=== PATIENT | male | born 1955 | race African-American/Black ===

== ENCOUNTER 2019-10-14 23:59 | Inpatient (IN) | payer MEDICARE, OTHER, MEDICAID ==
[~2019-10-14] VITALS: Ht 172.7 cm; Wt 54.4 kg
[2019-10-15 00:53] LABS: BG BASE EXCESS -1.2 mmol/L (-2.0-2.0); BG CARBOXYHEMOGLOBIN 0.9 % (0.5-1.5); BG DEOXYHEMOGLOBIN 0.8 % (0.0-5.0); BG FRACTION INSPIRED OXYGEN 100; BG HCO3 ACT 22.4 mmol/L (22.0-26.0); BG METHEMOGLOBIN 0.1 % (0.0-1.5); BG OXYGEN SATURATION 99.2 % (92.0-98.5); BG OXYHEMOGLOBIN 98.2 % (94.0-97.0); BG PCO2 34.6 mmHg (35.0-45.0); BG SAMPLE SITE RIGHT RADIAL; BG TOTAL HEMOGLOBIN 14.2 g/dL (12.0-18.0); BG VENT MODE MASK - NRB
[2019-10-15 01:11] LABS: BASOPHILS % 0.7 % (0.0-2.0); EOSINOPHILS % 0.7 % (0.0-5.0); HEMATOCRIT. 44.5 % (42.0-52.0); HEMOGLOBIN. 14.5 g/dL (14.0-18.0); LYMPHOCYTES % 17.2 % (20.0-50.0); MEAN CORPUSCULAR HEMOGLOBIN 27.5 pg (28.0-32.0); MEAN CORPUSCULAR VOLUME 84.4 fL (80.0-94.0); MEAN PLATELET VOLUME 7.7 fl (7.4-10.4); MONOCYTES % 8.8 % (2.0-8.0); NEUTROPHILS % 72.6 % (40.0-76.0); PLATELET 365 x1000/uL (130-400); RED BLOOD CELL COUNT 5.27 mill/uL (4.7-6.1); RED CELL DISTRIBUTION WIDTH 15.9 % (11.6-14.6)
[2019-10-15 01:34] LABS: CHLORIDE 106 mEq/L (98-107)
[2019-10-15] MEDS ORDERED: CEFTRIAXONE 1 G PREMIX 50 ML IV ONE (02:00)
[2019-10-15] MEDS ORDERED: AZITHROMYCIN 500 MG in DEXT 5% WATER 250 ML IV ONE (02:00)
[2019-10-15] MEDS ORDERED: HYDROCODONE/ACETAMINOPHEN 5/325MG TABLET PO ONE (03:45)
[2019-10-15] MEDS: LORAZEPAM 0.5MG TABLET PO PRN ×2 (06:57→20:42)
[2019-10-15] MEDS ORDERED: ACETAMINOPHEN 325MG TABLET PO PRN (12:30)
[2019-10-15] MEDS ORDERED: METHYLPREDNISOLONE SOD SUCC 125 MG/2 ML VIAL IV SCH (14:00)
[2019-10-15] MEDS ORDERED: ONDANSETRON HCL 4MG/2ML INJ IV PRN (14:00)
[2019-10-15] MEDS ORDERED: TRAZODONE HCL 50MG TABLET PO PRN (14:00)
[2019-10-15] MEDS: TRAMADOL 50MG TABLET PO PRN ×2 (14:42→20:42)
[2019-10-15 15:33] LABS: BASOPHILS % 0.5 % (0.0-2.0); EOSINOPHILS % 0.4 % (0.0-5.0); HEMATOCRIT. 38.6 % (42.0-52.0); HEMOGLOBIN. 12.7 g/dL (14.0-18.0); LYMPHOCYTES % 8.5 % (20.0-50.0); MEAN CORPUSCULAR HEMOGLOBIN 27.6 pg (28.0-32.0); MEAN CORPUSCULAR VOLUME 83.8 fL (80.0-94.0); MONOCYTES % 8.1 % (2.0-8.0); NEUTROPHILS % 82.5 % (40.0-76.0); PLATELET 357 x1000/uL (130-400); RED CELL DISTRIBUTION WIDTH 15.6 % (11.6-14.6)
[2019-10-15 15:38] LABS: CHLORIDE 106 mEq/L (98-107)
[2019-10-15] MEDS: CITALOPRAM HYDROBROMIDE 10MG TABLET PO SCH (16:40)
[2019-10-15] MEDS: METHYLPREDNISOLONE SOD SUCC 40 MG/ML VIAL IV SCH (17:52)
[2019-10-15 18:32] LABS: *AMPHETAMINES SCREEN URINE NEGATIVE (NEGATIVE); *BARBITURATES SCREEN URINE NEGATIVE (NEGATIVE); *BENZODIAZEPINES SCREEN URINE NEGATIVE (NEGATIVE); *COCAINE SCREEN URINE PRESUMTIVE POSITIVE (NEGATIVE); METHADONE URINE SCREEN NEGATIVE (NEGATIVE)
[2019-10-15 18:33] LABS: CANNABINOID URINE SCREEN NEGATIVE (NEGATIVE); OPIATES URINE SCREEN PRESUMTIVE POSITIVE (NEGATIVE); PHENCYCLIDINE URINE SCREEN NEGATIVE (NEGATIVE)
[2019-10-15 21:30] VITALS: BP 126/78
[2019-10-15] MEDS ORDERED: ALPR1TAB2 PO (21:38)
[2019-10-15] MEDS ORDERED: HYDR-3280 PO (21:38)
[2019-10-15] MEDS: HEPARIN 5000 UNITS/ML VIAL SUBCUT SCH (22:29)
[2019-10-15] MEDS ORDERED: ALPR-340 PO (23:40)
[2019-10-16] VITALS: BP 120/74
[2019-10-16] MEDS: METHYLPREDNISOLONE SOD SUCC 40 MG/ML VIAL IV SCH ×3 (00:54→20:52)
[2019-10-16] MEDS: CEFTRIAXONE 1,000 MG in DEXTROSE 5% WATER 50 ML IV SCH (01:02)
[2019-10-16] MEDS ORDERED: CEFTRIAXONE 1 G PREMIX 50 ML IV SCH (02:00)
[2019-10-16] MEDS ORDERED: AZITHROMYCIN 500 MG in DEXT 5% WATER 250 ML IV SCH (03:00)
[2019-10-16] MEDS: AZITHROMYCIN 500 MG in DEXT 5% WATER 250 ML IV SCH (03:26)
[2019-10-16 05:13] LABS: CHLORIDE 104 mEq/L (98-107)
[2019-10-16 05:39] LABS: HEMOGLOBIN. 12.7 g/dL (14.0-18.0); MEAN CORPUSCULAR VOLUME 83.9 fL (80.0-94.0); MEAN PLATELET VOLUME 7.6 fl (7.4-10.4); PLATELET 336 x1000/uL (130-400); RED BLOOD CELL COUNT 4.53 mill/uL (4.7-6.1); RED CELL DISTRIBUTION WIDTH 15.4 % (11.6-14.6)
[2019-10-16] MEDS: ALBUTEROL 6.7GM HFA INHALER ORI SCH ×2 (05:44)
[2019-10-16] MEDS: LORAZEPAM 0.5MG TABLET PO PRN (05:45)
[2019-10-16] MEDS: TRAMADOL 50MG TABLET PO PRN (05:50)
[2019-10-16 08:00] VITALS: BP 111/73
[2019-10-16] MEDS: HEPARIN 5000 UNITS/ML VIAL SUBCUT SCH (09:00)
[2019-10-16] MEDS: IPRATROPIUM/ALBUTEROL 0.5-3(2.5)MG/3ML NEB HHN SCH ×3 (09:31→23:59)
[2019-10-16] MEDS: CITALOPRAM HYDROBROMIDE 10MG TABLET PO SCH (09:37)
[2019-10-16 12:00] VITALS: BP 113/77
[2019-10-16 13:57] LABS: PLATELET ESTIMATE NORMAL
[2019-10-16] MEDS: GUAIFENESIN-DM 200MG-20MG/10ML UDC PO PRN ×2 (14:33→20:52)
[2019-10-16] MEDS: CYCLOBENZAPRINE 10MG TABLET PO PRN (14:33)
[2019-10-16] MEDS: GABAPENTIN 100MG CAPSULE PO SCH ×2 (14:33→21:02)
[2019-10-16 16:00] VITALS: BP 117/79
[2019-10-16 20:00] VITALS: BP 133/46
[2019-10-16] MEDS: ENOXAPARIN 60MG/0.6ML SYR SUBCUT SCH (20:52)
[2019-10-16] MEDS ORDERED: IOHEXOL-350 100 ML BOTTLE ONE (21:58)
[2019-10-17] VITALS: BP 103/70
[2019-10-17] MEDS: AZITHROMYCIN 500 MG in DEXT 5% WATER 250 ML IV SCH (02:01)
[2019-10-17] MEDS: CEFTRIAXONE 1,000 MG in DEXTROSE 5% WATER 50 ML IV SCH (02:01)
[2019-10-17 04:00] VITALS: BP 99/62
[2019-10-17] MEDS: GABAPENTIN 100MG CAPSULE PO SCH ×3 (06:42→22:49)
[2019-10-17 07:24] LABS: HEMATOCRIT. 37.1 % (42.0-52.0); HEMOGLOBIN. 12.2 g/dL (14.0-18.0); MEAN CORPUSCULAR HEMOGLOBIN 27.4 pg (28.0-32.0); MEAN CORPUSCULAR VOLUME 83.3 fL (80.0-94.0); MEAN PLATELET VOLUME 7.6 fl (7.4-10.4); PLATELET 353 x1000/uL (130-400); RED BLOOD CELL COUNT 4.45 mill/uL (4.7-6.1); RED CELL DISTRIBUTION WIDTH 15.6 % (11.6-14.6)
[2019-10-17 07:41] LABS: PROTHROMBIN TIME 10.9 sec (9.6-11.0)
[2019-10-17 07:55] LABS: CHLORIDE 103 mEq/L (98-107)
[2019-10-17 08:00] VITALS: BP 100/59
[2019-10-17] MEDS: CITALOPRAM HYDROBROMIDE 10MG TABLET PO SCH (08:09)
[2019-10-17] MEDS: METHYLPREDNISOLONE SOD SUCC 40 MG/ML VIAL IV SCH ×2 (08:09→20:41)
[2019-10-17] MEDS: ENOXAPARIN 60MG/0.6ML SYR SUBCUT SCH (08:09)
[2019-10-17 12:00] VITALS: BP 144/87
[2019-10-17] MEDS: IPRATROPIUM/ALBUTEROL 0.5-3(2.5)MG/3ML NEB HHN SCH ×3 (12:58→20:26)
[2019-10-17] MEDS ORDERED: FUROSEMIDE 40MG/4ML VIAL IVP NR (14:00)
[2019-10-17 14:17] LABS: PLATELET ESTIMATE NORMAL
[2019-10-17] MEDS: CYCLOBENZAPRINE 10MG TABLET PO PRN (14:51)
[2019-10-17 16:00] VITALS: BP 118/76
[2019-10-17 20:00] VITALS: BP 124/82
[2019-10-17] MEDS: LORAZEPAM 0.5MG TABLET PO PRN (20:41)
[2019-10-18] VITALS: BP 128/85
[2019-10-18] MEDS: CEFTRIAXONE 1,000 MG in DEXTROSE 5% WATER 50 ML IV SCH (02:25)
[2019-10-18 04:00] VITALS: BP 105/62
[2019-10-18] MEDS: IPRATROPIUM/ALBUTEROL 0.5-3(2.5)MG/3ML NEB HHN SCH ×6 (04:00→20:00)
[2019-10-18] MEDS: AZITHROMYCIN 500 MG in DEXT 5% WATER 250 ML IV SCH (04:29)
[2019-10-18] MEDS: GABAPENTIN 100MG CAPSULE PO SCH ×3 (06:36→21:19)
[2019-10-18 06:46] LABS: HEMATOCRIT. 39.4 % (42.0-52.0); HEMOGLOBIN. 12.8 g/dL (14.0-18.0); MEAN CORPUSCULAR HEMOGLOBIN 27.1 pg (28.0-32.0); MEAN CORPUSCULAR VOLUME 83.2 fL (80.0-94.0); MEAN PLATELET VOLUME 7.8 fl (7.4-10.4); PLATELET 319 x1000/uL (130-400); RED BLOOD CELL COUNT 4.73 mill/uL (4.7-6.1); RED CELL DISTRIBUTION WIDTH 15.4 % (11.6-14.6)
[2019-10-18 07:03] LABS: CHLORIDE 102 mEq/L (98-107)
[2019-10-18 08:00] VITALS: BP 117/78
[2019-10-18] MEDS ORDERED: SODIUM BICARBONATE 4% (2.4MEQ) 5ML VIAL IV ONE (08:59)
[2019-10-18] MEDS: METHYLPREDNISOLONE SOD SUCC 40 MG/ML VIAL IV SCH ×2 (10:05→21:19)
[2019-10-18] MEDS: CITALOPRAM HYDROBROMIDE 10MG TABLET PO SCH (10:05)
[2019-10-18 12:00] VITALS: BP 124/85
[2019-10-18] MEDS ORDERED: SODIUM POLYSTYRENE SULFONATE 15 G/60 ML BOT PO NR (12:30)
[2019-10-18] MEDS: FUROSEMIDE 40MG/4ML VIAL IVP SCH (13:11)
[2019-10-18 16:00] VITALS: BP 119/81
[2019-10-18 17:06] LABS: PLATELET ESTIMATE NORMAL
[2019-10-18 20:18] VITALS: BP 116/77
[2019-10-18] MEDS: TRAMADOL 50MG TABLET PO PRN (21:22)
[2019-10-19] VITALS: BP 127/86
[2019-10-19] MEDS: CEFTRIAXONE 1,000 MG in DEXTROSE 5% WATER 50 ML IV SCH (01:32)
[2019-10-19] MEDS: AZITHROMYCIN 500 MG in DEXT 5% WATER 250 ML IV SCH (02:47)
[2019-10-19 04:00] VITALS: BP 124/83
[2019-10-19] MEDS: GABAPENTIN 100MG CAPSULE PO SCH ×3 (06:35→21:48)
[2019-10-19 07:40] LABS: CHLORIDE 100 mEq/L (98-107)
[2019-10-19 08:00] VITALS: BP 131/86
[2019-10-19 08:00] LABS: HEMATOCRIT. 40.1 % (42.0-52.0); HEMOGLOBIN. 13.4 g/dL (14.0-18.0); MEAN CORPUSCULAR HEMOGLOBIN 27.7 pg (28.0-32.0); MEAN CORPUSCULAR VOLUME 82.6 fL (80.0-94.0); MEAN PLATELET VOLUME 7.6 fl (7.4-10.4); PLATELET 350 x1000/uL (130-400); RED BLOOD CELL COUNT 4.86 mill/uL (4.7-6.1); RED CELL DISTRIBUTION WIDTH 15.5 % (11.6-14.6)
[2019-10-19] MEDS: IPRATROPIUM/ALBUTEROL 0.5-3(2.5)MG/3ML NEB HHN SCH ×4 (08:21→19:53)
[2019-10-19] MEDS: METHYLPREDNISOLONE SOD SUCC 40 MG/ML VIAL IV SCH ×2 (08:23→21:48)
[2019-10-19] MEDS: FUROSEMIDE 40MG/4ML VIAL IVP SCH (08:23)
[2019-10-19] MEDS: CITALOPRAM HYDROBROMIDE 10MG TABLET PO SCH (08:23)
[2019-10-19 12:00] VITALS: BP 114/75
[2019-10-19] MEDS: TRAMADOL 50MG TABLET PO PRN ×2 (13:01→21:58)
[2019-10-19 13:50] LABS: PLATELET ESTIMATE NORMAL
[2019-10-19 16:00] VITALS: BP 119/74
[2019-10-19 20:00] VITALS: BP 113/79
[2019-10-20] VITALS: BP 130/86
[2019-10-20] MEDS: IPRATROPIUM/ALBUTEROL 0.5-3(2.5)MG/3ML NEB HHN SCH ×5 (00:28→15:07)
[2019-10-20] MEDS: CEFTRIAXONE 1,000 MG in DEXTROSE 5% WATER 50 ML IV SCH (02:01)
[2019-10-20] MEDS: AZITHROMYCIN 500 MG in DEXT 5% WATER 250 ML IV SCH (02:01)
[2019-10-20] MEDS: GUAIFENESIN-DM 200MG-20MG/10ML UDC PO PRN (02:04)
[2019-10-20 04:00] VITALS: BP 129/85
[2019-10-20] MEDS: GABAPENTIN 100MG CAPSULE PO SCH ×2 (06:17→13:59)
[2019-10-20 07:18] LABS: HEMATOCRIT. 39.9 % (42.0-52.0); HEMOGLOBIN. 13.2 g/dL (14.0-18.0); MEAN CORPUSCULAR HEMOGLOBIN 27.4 pg (28.0-32.0); MEAN CORPUSCULAR VOLUME 82.5 fL (80.0-94.0); PLATELET 337 x1000/uL (130-400); RED BLOOD CELL COUNT 4.83 mill/uL (4.7-6.1); RED CELL DISTRIBUTION WIDTH 15.3 % (11.6-14.6)
[2019-10-20 07:29] LABS: CHLORIDE 98 mEq/L (98-107)
[2019-10-20 08:00] VITALS: BP_SYST 133; BP_SYST 150; BP_DIAS 63; BP_DIAS 75
[2019-10-20] MEDS: FUROSEMIDE 40MG/4ML VIAL IVP SCH (08:44)
[2019-10-20] MEDS: CITALOPRAM HYDROBROMIDE 10MG TABLET PO SCH (08:45)
[2019-10-20] MEDS: METHYLPREDNISOLONE SOD SUCC 40 MG/ML VIAL IV SCH (08:45)
[2019-10-20 11:27] LABS: PLATELET ESTIMATE NORMAL
[2019-10-20] MEDS: TRAMADOL 50MG TABLET PO PRN (11:38)
[2019-10-20 12:00] VITALS: BP 132/86
[2019-10-20] MEDS ORDERED: TOPUD PO (14:53)
[2019-10-20] MEDS ORDERED: IPRA3AMP9 HHN (14:53)
[2019-10-20] MEDS ORDERED: AZIT500T8 MT (14:53)
[2019-10-20] MEDS ORDERED: CITA10TA16 PO (14:53)
[2019-10-20] MEDS ORDERED: TRAM50TA3 MT (14:53)
[2019-10-20] MEDS ORDERED: FURO-151 MT (14:53)
[2019-10-20] MEDS ORDERED: FLUT1BLS INH (14:53)
[2019-10-20] MEDS ORDERED: P50 MT (14:53)
[2019-10-20] MEDS ORDERED: TIOT18CA3 INH (14:53)
[2019-10-20] MEDS ORDERED: CYCL10TA7 PO (14:53)
[2019-10-20] MEDS ORDERED: TRAZ-251 PO (14:53)
[2019-10-20] MEDS ORDERED: APIX5TAB MT (14:53)
[2019-10-20] MEDS ORDERED: TUSSL PO (14:53)
[2019-10-20] MEDS ORDERED: GABA-529 PO (14:53)
[2019-10-20] MEDS ORDERED: APIXABAN 5 MG TABLET PO SCH (15:00)
[2019-10-20 16:00] VITALS: BP 115/81
[2019-10-20 18:26] VITALS: BP 115/81
[2019-10-21] MEDS ORDERED: METHYLPREDNISOLONE SOD SUCC 40 MG/ML VIAL IV SCH (09:00)
== END 2019-10-20 18:47 | disposition home health service (06) | DRG 871 ==
LOC: ER 23:59 → 7WST 10-15 02:35 → ENRESERV 10-15 20:26 → 5WST 10-16 11:44
PROVIDERS: ADMIT Internal Medicine; ATTEND Internal Medicine
PROC: 0W993ZZ Drainage of Right Pleural Cavity, Percutaneous Approach (ICD-10-PCS; principal; 2019-10-18)
DX: A41.9 Sepsis, unspecified organism (principal); J18.9 Pneumonia, unspecified organism; J96.21 Acute and chronic respiratory failure with hypoxia; E87.1 Hypo-osmolality and hyponatremia; E44.0 Moderate protein-calorie malnutrition; I31.3 Pericardial effusion (noninflammatory); J90 Pleural effusion, not elsewhere classified; Z68.1 Body mass index [BMI] 19.9 or less, adult; C61 Malignant neoplasm of prostate; D64.9 Anemia, unspecified; E11.65 Type 2 diabetes mellitus with hyperglycemia; E87.5 Hyperkalemia; F14.10 Cocaine abuse, uncomplicated; F17.210 Nicotine dependence, cigarettes, uncomplicated; F41.9 Anxiety disorder, unspecified; I10 Essential (primary) hypertension; J43.9 Emphysema, unspecified; M54.9 Dorsalgia, unspecified; J45.909 Unspecified asthma, uncomplicated; Z79.01 Long term (current) use of anticoagulants; Z79.51 Long term (current) use of inhaled steroids; Z79.899 Other long term (current) drug therapy; Z85.46 Personal history of malignant neoplasm of prostate; Z86.711 Personal history of pulmonary embolism; Z99.81 Dependence on supplemental oxygen; Z11.59 Encounter for screening for other viral diseases
CPT/HCPCS: 32555; 36415; 36600; 71045; 71275; 76604; 78582; 80053; 80305; 82040; 82375; 82805; 83036; 83605; 83615; 83735; 83880; 84484; 85025; 88108; 93005; 93306; 94640; 96365; 96366; 96367; 96375; 96376; 97162; 97165; 99291; A9558; J0456; J0696; J1644; J1650; J1940; J2920; J2930; J3490; J7060; Q9967; U0003-CS

== ENCOUNTER 2019-10-26 00:34 | Inpatient (IN) | payer MEDICARE, MEDICAID ==
[~2019-10-26] VITALS: Ht 170.2 cm; Wt 53.1 kg
[~2019-10-26 00:34] MED LIST: APIX5TAB MT; AZIT500T8 MT; CITA10TA16 PO; CYCL10TA7 PO; FLUT1BLS INH; FURO-151 MT; GABA-529 PO; IPRA3AMP9 HHN; P50 MT; TIOT18CA3 INH; TOPUD PO; TRAM50TA3 MT; TRAZ-251 PO; TUSSL PO
[2019-10-26] MEDS ORDERED: IPRATROPIUM BROMIDE (0.02%) 0.5MG/2.5ML NEB HHN STA (01:04)
[2019-10-26] MEDS ORDERED: ALBUTEROL (0.083%) 2.5MG/3ML NEB HHN STA (01:04)
[2019-10-26 01:23] LABS: HEMATOCRIT. 40.1 % (42.0-52.0); HEMOGLOBIN. 13.2 g/dL (14.0-18.0); MEAN CORPUSCULAR HEMOGLOBIN 27.6 pg (28.0-32.0); MEAN CORPUSCULAR VOLUME 83.9 fL (80.0-94.0); MEAN PLATELET VOLUME 7.4 fl (7.4-10.4); PLATELET 291 x1000/uL (130-400); RED BLOOD CELL COUNT 4.78 mill/uL (4.7-6.1)
[2019-10-26 01:30] LABS: CHLORIDE 102 mEq/L (98-107)
[2019-10-26 01:53] LABS: PROTHROMBIN TIME 10.5 sec (9.6-11.0)
[2019-10-26] MEDS ORDERED: PIPERACILLIN/TAZ 3.375G PREMIX 50 ML IV ONE (02:15)
[2019-10-26 04:42] LABS: CLARITY URINE CLEAR (CLEAR); COLOR URINE YELLOW (YELLOW); KETONES URINE NEGATIVE (NEGATIVE); LEUKOCYTE ESTERASE URINE 1+ (NEGATIVE); NITRITE URINE NEGATIVE (NEGATIVE); OCCULT BLOOD URINE NEGATIVE (NEGATIVE); PH URINE 5.5 (4.5-8.0); PROTEIN URINE 1+ (NEGATIVE); SPECIFIC GRAVITY URINE 1.029 (1.005-1.030)
[2019-10-26 05:46] LABS: PLATELET ESTIMATE NORMAL
[2019-10-26] MEDS ORDERED: DIPHENHYDRAMINE 50MG/ML VIAL IV PRN (08:00)
[2019-10-26] MEDS ORDERED: ONDANSETRON HCL 4MG/2ML INJ IV PRN (08:00)
[2019-10-26] MEDS ORDERED: DOCUSATE SODIUM 100MG CAPSULE PO PRN (08:00)
[2019-10-26] MEDS ORDERED: CLONIDINE 0.1MG TABLET PO PRN (08:00)
[2019-10-26] MEDS ORDERED: PIPERACILLIN/TAZ 3.375G PREMIX 50 ML IV SCH (08:00)
[2019-10-26] MEDS ORDERED: MORPHINE SULFATE 2 MG/ML CPJ (NOT FOR IM USE) IV PRN (08:00)
[2019-10-26] MEDS ORDERED: ACETAMINOPHEN 325MG TABLET PO PRN (08:00)
[2019-10-26] MEDS ORDERED: HYDRALAZINE 20MG/ML VIAL IV PRN (08:00)
[2019-10-26] MEDS ORDERED: MAGNESIUM/ALUMINUM HYDROXIDE/SIMETHICONE 30ML UDC PO PRN (08:00)
[2019-10-26 09:40] LABS: *AMPHETAMINES SCREEN URINE NEGATIVE (NEGATIVE); *BARBITURATES SCREEN URINE NEGATIVE (NEGATIVE); *BENZODIAZEPINES SCREEN URINE PRESUMTIVE POSITIVE (NEGATIVE); *COCAINE SCREEN URINE PRESUMTIVE POSITIVE (NEGATIVE); METHADONE URINE SCREEN NEGATIVE (NEGATIVE); OPIATES URINE SCREEN PRESUMTIVE POSITIVE (NEGATIVE)
[2019-10-26 09:41] LABS: PHENCYCLIDINE URINE SCREEN NEGATIVE (NEGATIVE)
[2019-10-26 09:48] LABS: CANNABINOID URINE SCREEN NEGATIVE (NEGATIVE)
[2019-10-26] MEDS ORDERED: ENOXAPARIN 60MG/0.6ML SYR SUBCUT SCH (12:00)
[2019-10-26 12:15] VITALS: BP 129/75
[2019-10-26] MEDS: SODIUM CHLORIDE 0.9% INJ 3ML FLUSH IVF SCH ×2 (13:40→22:00)
[2019-10-26 14:07] VITALS: BP 114/83
[2019-10-26] MEDS: HYDROCODONE/ACETAMINOPHEN 10/325MG TABLET PO PRN ×2 (14:29→20:29)
[2019-10-26 15:06] LABS: CREATINE KINASE 79 IU/L (39-308)
[2019-10-26 15:08] LABS: CREATINE KINASE MB FRACTION 2.4 ng/mL (0.5-3.6)
[2019-10-26] MEDS: LORAZEPAM 2MG/ML CPJ IV PRN (15:13)
[2019-10-26] MEDS: GUAIFENESIN 200MG/10ML SUGAR FREE UDC PO PRN ×2 (15:13→20:28)
[2019-10-26 16:00] VITALS: BP 141/81
[2019-10-26] MEDS: PIPERACILLIN/TAZOBACTAM 3.375 G in DEXT 5% WATER 100 ML IV SCH (17:19)
[2019-10-26] MEDS ORDERED: IOHEXOL-350 100 ML BOTTLE ONE (17:31)
[2019-10-26 20:00] VITALS: BP 116/82
[2019-10-26] MEDS: ENOXAPARIN 60MG/0.6ML SYR SUBCUT SCH (20:28)
[2019-10-27] VITALS: BP 132/86
[2019-10-27 00:35] LABS: CREATINE KINASE 98 IU/L (39-308)
[2019-10-27 00:36] LABS: CREATINE KINASE MB FRACTION 2.1 ng/mL (0.5-3.6)
[2019-10-27] MEDS: HYDROCODONE/ACETAMINOPHEN 10/325MG TABLET PO PRN ×3 (00:52→20:20)
[2019-10-27] MEDS: GUAIFENESIN 200MG/10ML SUGAR FREE UDC PO PRN ×3 (00:52→20:19)
[2019-10-27] MEDS: PIPERACILLIN/TAZOBACTAM 3.375 G in DEXT 5% WATER 100 ML IV SCH ×3 (01:01→17:06)
[2019-10-27] MEDS: IPRATROPIUM/ALBUTEROL 0.5-3(2.5)MG/3ML NEB HHN PRN ×5 (01:55→20:08)
[2019-10-27 04:00] VITALS: BP 112/75
[2019-10-27] MEDS: SODIUM CHLORIDE 0.9% INJ 3ML FLUSH IVF SCH ×3 (05:18→22:00)
[2019-10-27 06:54] LABS: BASOPHILS % 0.5 % (0.0-2.0); EOSINOPHILS % 0.5 % (0.0-5.0); HEMATOCRIT. 36.9 % (42.0-52.0); HEMOGLOBIN. 12.2 g/dL (14.0-18.0); LYMPHOCYTES % 12.1 % (20.0-50.0); MEAN CORPUSCULAR HEMOGLOBIN 27.7 pg (28.0-32.0); MEAN CORPUSCULAR VOLUME 83.4 fL (80.0-94.0); MEAN PLATELET VOLUME 7.9 fl (7.4-10.4); MONOCYTES % 10.3 % (2.0-8.0); NEUTROPHILS % 76.6 % (40.0-76.0); PLATELET 261 x1000/uL (130-400); RED BLOOD CELL COUNT 4.42 mill/uL (4.7-6.1); RED CELL DISTRIBUTION WIDTH 15.9 % (11.6-14.6)
[2019-10-27 07:20] LABS: CHLORIDE 102 mEq/L (98-107)
[2019-10-27 08:00] VITALS: BP 114/79
[2019-10-27] MEDS: ENOXAPARIN 60MG/0.6ML SYR SUBCUT SCH ×2 (09:01→20:20)
[2019-10-27] MEDS: LORAZEPAM 2MG/ML CPJ IV PRN ×2 (10:58→22:46)
[2019-10-27 12:00] VITALS: BP 112/81
[2019-10-27 16:00] VITALS: BP 105/71
[2019-10-27 20:00] VITALS: BP 114/79
[2019-10-28] VITALS: BP 115/70
[2019-10-28] MEDS: IPRATROPIUM/ALBUTEROL 0.5-3(2.5)MG/3ML NEB HHN PRN ×3 (00:41→16:00)
[2019-10-28] MEDS: PIPERACILLIN/TAZOBACTAM 3.375 G in DEXT 5% WATER 100 ML IV SCH ×4 (02:00→17:27)
[2019-10-28] MEDS: GUAIFENESIN 200MG/10ML SUGAR FREE UDC PO PRN ×3 (02:14→21:40)
[2019-10-28] MEDS: HYDROCODONE/ACETAMINOPHEN 10/325MG TABLET PO PRN ×3 (02:16→21:40)
[2019-10-28 04:00] VITALS: BP 141/72
[2019-10-28] MEDS: SODIUM CHLORIDE 0.9% INJ 3ML FLUSH IVF SCH ×3 (05:10→20:49)
[2019-10-28 08:00] VITALS: BP 107/79
[2019-10-28] MEDS: ENOXAPARIN 60MG/0.6ML SYR SUBCUT SCH (09:27)
[2019-10-28 12:00] VITALS: BP 119/72
[2019-10-28 16:00] VITALS: BP 139/84
[2019-10-28] MEDS: LORAZEPAM 2MG/ML CPJ IV PRN (16:21)
[2019-10-28 20:00] VITALS: BP 146/90
[2019-10-28] MEDS: IPRATROPIUM/ALBUTEROL 0.5-3(2.5)MG/3ML NEB HHN SCH (20:42)
[2019-10-29 00:01] VITALS: BP 119/72
[2019-10-29] MEDS: IPRATROPIUM/ALBUTEROL 0.5-3(2.5)MG/3ML NEB HHN SCH ×4 (01:09→21:54)
[2019-10-29] MEDS: PIPERACILLIN/TAZOBACTAM 3.375 G in DEXT 5% WATER 100 ML IV SCH ×3 (01:29→17:12)
[2019-10-29] MEDS: GUAIFENESIN 200MG/10ML SUGAR FREE UDC PO PRN ×4 (03:08→22:27)
[2019-10-29] MEDS: HYDROCODONE/ACETAMINOPHEN 10/325MG TABLET PO PRN ×2 (03:09→18:45)
[2019-10-29 04:00] VITALS: BP 105/67
[2019-10-29] MEDS: SODIUM CHLORIDE 0.9% INJ 3ML FLUSH IVF SCH ×3 (06:22→21:14)
[2019-10-29 06:26] LABS: CHLORIDE 99 mEq/L (98-107)
[2019-10-29 06:54] LABS: BASOPHILS % 0.3 % (0.0-2.0); EOSINOPHILS % 0.1 % (0.0-5.0); HEMATOCRIT. 35.7 % (42.0-52.0); HEMOGLOBIN. 11.8 g/dL (14.0-18.0); LYMPHOCYTES % 8.6 % (20.0-50.0); MEAN CORPUSCULAR HEMOGLOBIN 27.8 pg (28.0-32.0); MEAN CORPUSCULAR VOLUME 84.1 fL (80.0-94.0); MEAN PLATELET VOLUME 7.8 fl (7.4-10.4); MONOCYTES % 8.5 % (2.0-8.0); NEUTROPHILS % 82.5 % (40.0-76.0); PLATELET 260 x1000/uL (130-400); RED BLOOD CELL COUNT 4.24 mill/uL (4.7-6.1); RED CELL DISTRIBUTION WIDTH 16.1 % (11.6-14.6)
[2019-10-29] MEDS ORDERED: SODIUM BICARBONATE 4% (2.4MEQ) 5ML VIAL IV ONE (07:48)
[2019-10-29 08:00] VITALS: BP 124/92
[2019-10-29] MEDS ORDERED: ENOXAPARIN 40MG/0.4ML SYR SUBCUT SCH (09:00)
[2019-10-29 12:00] VITALS: BP 119/69
[2019-10-29] MEDS ORDERED: ALBUMIN HUMAN 12.5GM/50ML (25%) IV NR (14:00)
[2019-10-29 16:00] VITALS: BP 113/75
[2019-10-29 20:00] VITALS: BP 110/61
[2019-10-30] VITALS: BP 97/64
[2019-10-30] MEDS: IPRATROPIUM/ALBUTEROL 0.5-3(2.5)MG/3ML NEB HHN SCH ×4 (02:12→21:13)
[2019-10-30] MEDS: PIPERACILLIN/TAZOBACTAM 3.375 G in DEXT 5% WATER 100 ML IV SCH ×3 (02:54→17:53)
[2019-10-30] MEDS: HYDROCODONE/ACETAMINOPHEN 10/325MG TABLET PO PRN ×4 (03:17→22:13)
[2019-10-30 04:00] VITALS: BP 95/53
[2019-10-30] MEDS: SODIUM CHLORIDE 0.9% INJ 3ML FLUSH IVF SCH ×3 (05:45→21:01)
[2019-10-30 06:34] LABS: CHLORIDE 102 mEq/L (98-107)
[2019-10-30 07:00] LABS: HEMATOCRIT. 32.1 % (42.0-52.0); HEMOGLOBIN. 10.6 g/dL (14.0-18.0); MEAN CORPUSCULAR HEMOGLOBIN 27.6 pg (28.0-32.0); MEAN CORPUSCULAR VOLUME 83.2 fL (80.0-94.0); MEAN PLATELET VOLUME 7.5 fl (7.4-10.4); PLATELET 226 x1000/uL (130-400); RED BLOOD CELL COUNT 3.85 mill/uL (4.7-6.1); RED CELL DISTRIBUTION WIDTH 15.3 % (11.6-14.6)
[2019-10-30 08:00] VITALS: BP 101/62
[2019-10-30] MEDS: ENOXAPARIN 40MG/0.4ML SYR SUBCUT SCH (08:29)
[2019-10-30] MEDS: GUAIFENESIN 200MG/10ML SUGAR FREE UDC PO PRN ×2 (08:29→21:02)
[2019-10-30 12:00] VITALS: BP 105/72
[2019-10-30] MEDS: BENZONATATE 100MG CAPSULE PO SCH ×2 (13:45→21:01)
[2019-10-30 16:00] VITALS: BP 140/62
[2019-10-30 20:00] VITALS: BP 95/57
[2019-10-30] MEDS: GUAIFENESIN 600MG ER TABLET PO SCH (21:01)
[2019-10-31] VITALS: BP 113/74
[2019-10-31] MEDS: PIPERACILLIN/TAZOBACTAM 3.375 G in DEXT 5% WATER 100 ML IV SCH ×3 (01:36→18:00)
[2019-10-31] MEDS: IPRATROPIUM/ALBUTEROL 0.5-3(2.5)MG/3ML NEB HHN SCH ×3 (02:18→12:53)
[2019-10-31 04:00] VITALS: BP 100/59
[2019-10-31] MEDS: SODIUM CHLORIDE 0.9% INJ 3ML FLUSH IVF SCH ×2 (06:31→14:00)
[2019-10-31] MEDS: BENZONATATE 100MG CAPSULE PO SCH ×2 (06:31→15:27)
[2019-10-31 08:00] VITALS: BP 123/73
[2019-10-31] MEDS: GUAIFENESIN 600MG ER TABLET PO SCH (08:45)
[2019-10-31] MEDS: ENOXAPARIN 40MG/0.4ML SYR SUBCUT SCH (08:46)
[2019-10-31 12:00] VITALS: BP 93/56
[2019-10-31 12:00] LABS: PLATELET ESTIMATE NORMAL
[2019-10-31 15:44] VITALS: BP 101/67
[2019-10-31 20:00] VITALS: BP 108/69
== END 2019-10-31 22:25 | disposition home or self-care (01) | DRG 871 ==
LOC: ER 00:34 → 8WST 02:30 → EDBEDREQTM 02:35 → EDBEDREQ 02:35 → ENRESERV 11:11
PROVIDERS: ADMIT Internal Medicine; ATTEND Internal Medicine
PROC: 0W993ZZ Drainage of Right Pleural Cavity, Percutaneous Approach (ICD-10-PCS; principal; 2019-10-29)
DX: A41.9 Sepsis, unspecified organism (principal); J18.9 Pneumonia, unspecified organism; J96.01 Acute respiratory failure with hypoxia; C34.91 Malignant neoplasm of unspecified part of right bronchus or lung; E46 Unspecified protein-calorie malnutrition; J91.0 Malignant pleural effusion; E87.2 Acidosis; D68.59 Other primary thrombophilia; J44.0 Chronic obstructive pulmonary disease with (acute) lower respiratory infection; C79.51 Secondary malignant neoplasm of bone; M48.54XA Collapsed vertebra, not elsewhere classified, thoracic region, initial encounter for fracture; J44.1 Chronic obstructive pulmonary disease with (acute) exacerbation; Z68.1 Body mass index [BMI] 19.9 or less, adult; I10 Essential (primary) hypertension; F14.10 Cocaine abuse, uncomplicated; E11.9 Type 2 diabetes mellitus without complications; F17.210 Nicotine dependence, cigarettes, uncomplicated; I25.10 Atherosclerotic heart disease of native coronary artery without angina pectoris; Z79.01 Long term (current) use of anticoagulants; Z86.711 Personal history of pulmonary embolism; Z92.3 Personal history of irradiation; Z99.81 Dependence on supplemental oxygen; Z79.2 Long term (current) use of antibiotics; Z79.899 Other long term (current) drug therapy; Z71.51 Drug abuse counseling and surveillance of drug abuser; Z85.46 Personal history of malignant neoplasm of prostate
CPT/HCPCS: 32555; 36415; 71045; 71275; 80048; 80053; 80305; 81003; 82550; 82553; 83605; 83880; 84484; 85025; 93005; 93970; 94640; 99291; J1650; J2060; J2270; J2543; J3490; J7060; P9047; Q9967

== ENCOUNTER 2019-11-11 09:30 | Inpatient (IN) | payer MEDICARE, MEDICAID ==
[~2019-11-11] VITALS: Ht 170.2 cm; Wt 65.8 kg
[2019-11-11] MEDS ORDERED: IPRATROPIUM BROMIDE (0.02%) 0.5MG/2.5ML NEB HHN STA (09:55)
[2019-11-11] MEDS ORDERED: ALBUTEROL (0.083%) 2.5MG/3ML NEB HHN STA (09:55)
[2019-11-11] MEDS ORDERED: METHYLPREDNISOLONE SOD SUCC 125 MG/2 ML VIAL IV STA (09:55)
[2019-11-11 10:12] LABS: HEMATOCRIT. 34.8 % (42.0-52.0); HEMOGLOBIN. 11.5 g/dL (14.0-18.0); MEAN CORPUSCULAR VOLUME 85.1 fL (80.0-94.0); PLATELET 382 x1000/uL (130-400); RED BLOOD CELL COUNT 4.09 mill/uL (4.7-6.1); RED CELL DISTRIBUTION WIDTH 16.6 % (11.6-14.6)
[2019-11-11 10:18] LABS: CHLORIDE 102 mEq/L (98-107)
[2019-11-11 10:37] LABS: PLATELET ESTIMATE NORMAL
[2019-11-11] MEDS ORDERED: MAGNESIUM/ALUMINUM HYDROXIDE/SIMETHICONE 30ML UDC PO PRN (14:00)
[2019-11-11] MEDS ORDERED: GUAIFENESIN 200MG/10ML SUGAR FREE UDC PO PRN (14:00)
[2019-11-11] MEDS ORDERED: DOCUSATE SODIUM 100MG CAPSULE PO PRN (14:00)
[2019-11-11] MEDS ORDERED: ACETAMINOPHEN 325MG TABLET PO PRN (14:00)
[2019-11-11] MEDS ORDERED: MORPHINE SULFATE 2 MG/ML CPJ (NOT FOR IM USE) IV PRN (14:00)
[2019-11-11] MEDS ORDERED: IPRATROPIUM/ALBUTEROL 0.5-3(2.5)MG/3ML NEB HHN PRN (14:00)
[2019-11-11] MEDS ORDERED: CLONIDINE 0.1MG TABLET PO PRN (14:00)
[2019-11-11] MEDS: METHYLPREDNISOLONE SOD SUCC 125 MG/2 ML VIAL IV SCH ×2 (16:00→20:30)
[2019-11-11] MEDS: ENOXAPARIN 40MG/0.4ML SYR SUBCUT SCH (16:00)
[2019-11-11] MEDS ORDERED: DILTIAZEM HCL 5MG/ML 5ML VIAL IV ONE (17:00)
[2019-11-11 18:55] VITALS: BP 138/86
[2019-11-11 20:00] VITALS: BP 110/65
[2019-11-11] MEDS: HYDROCODONE/ACETAMINOPHEN 5/325MG TABLET PO PRN (20:40)
[2019-11-11] MEDS: LORAZEPAM 2MG/ML CPJ IV PRN (21:15)
[2019-11-12] VITALS: BP 133/79
[2019-11-12] MEDS: DILTIAZEM HCL 30MG TABLET PO SCH ×4 (00:15→13:58)
[2019-11-12] MEDS: METHYLPREDNISOLONE SOD SUCC 125 MG/2 ML VIAL IV SCH ×4 (03:16→20:00)
[2019-11-12 04:00] VITALS: BP 128/70
[2019-11-12] MEDS: HYDROCODONE/ACETAMINOPHEN 5/325MG TABLET PO PRN ×3 (05:16→17:29)
[2019-11-12 06:17] LABS: HEMATOCRIT. 31.4 % (42.0-52.0); HEMOGLOBIN. 10.4 g/dL (14.0-18.0); MEAN CORPUSCULAR HEMOGLOBIN 27.8 pg (28.0-32.0); MEAN CORPUSCULAR VOLUME 83.8 fL (80.0-94.0); MEAN PLATELET VOLUME 7.3 fl (7.4-10.4); PLATELET 369 x1000/uL (130-400); RED BLOOD CELL COUNT 3.74 mill/uL (4.7-6.1); RED CELL DISTRIBUTION WIDTH 16.3 % (11.6-14.6)
[2019-11-12 06:29] LABS: PROTHROMBIN TIME 10.9 sec (9.6-11.0)
[2019-11-12 06:40] LABS: CHLORIDE 103 mEq/L (98-107)
[2019-11-12 08:00] VITALS: BP 128/79
[2019-11-12] MEDS: ENOXAPARIN 40MG/0.4ML SYR SUBCUT SCH (08:34)
[2019-11-12] MEDS: LISINOPRIL 10MG TABLET PO SCH (08:35)
[2019-11-12 12:00] VITALS: BP 110/76
[2019-11-12 16:00] VITALS: BP 110/75
[2019-11-12 18:17] LABS: PLATELET ESTIMATE NORMAL
[2019-11-12 20:00] VITALS: BP 120/69
[2019-11-12] MEDS: LORAZEPAM 2MG/ML CPJ IV PRN (20:00)
[2019-11-12 23:24] LABS: CLARITY URINE CLEAR (CLEAR); COLOR URINE YELLOW (YELLOW); KETONES URINE NEGATIVE (NEGATIVE); LEUKOCYTE ESTERASE URINE NEGATIVE (NEGATIVE); NITRITE URINE NEGATIVE (NEGATIVE); OCCULT BLOOD URINE NEGATIVE (NEGATIVE); PROTEIN URINE NEGATIVE (NEGATIVE); SPECIFIC GRAVITY URINE 1.029 (1.005-1.030); UROBILINOGEN URINE 0.2 E.U./dL (0.2-1.0)
[2019-11-12 23:40] LABS: PHENCYCLIDINE URINE SCREEN NEGATIVE (NEGATIVE)
[2019-11-12 23:41] LABS: *AMPHETAMINES SCREEN URINE NEGATIVE (NEGATIVE); *BARBITURATES SCREEN URINE NEGATIVE (NEGATIVE); *BENZODIAZEPINES SCREEN URINE NEGATIVE (NEGATIVE); *COCAINE SCREEN URINE PRESUMTIVE POSITIVE (NEGATIVE); CANNABINOID URINE SCREEN NEGATIVE (NEGATIVE); METHADONE URINE SCREEN NEGATIVE (NEGATIVE); OPIATES URINE SCREEN PRESUMTIVE POSITIVE (NEGATIVE)
[2019-11-12] MEDS: IPRATROPIUM BROMIDE (0.02%) 0.5MG/2.5ML NEB HHN SCH (23:54)
[2019-11-13] VITALS: BP 141/83
[2019-11-13] MEDS: DILTIAZEM HCL 30MG TABLET PO SCH ×2 (00:07→05:28)
[2019-11-13] MEDS: METHYLPREDNISOLONE SOD SUCC 125 MG/2 ML VIAL IV SCH ×4 (01:48→21:38)
[2019-11-13 03:47] VITALS: BP 120/79
[2019-11-13 08:00] VITALS: BP 131/84
[2019-11-13] MEDS: LISINOPRIL 10MG TABLET PO SCH (09:00)
[2019-11-13] MEDS ORDERED: SODIUM BICARBONATE 4% (2.4MEQ) 5ML VIAL IV ONE (10:13)
[2019-11-13] MEDS: IPRATROPIUM BROMIDE (0.02%) 0.5MG/2.5ML NEB HHN SCH ×2 (10:17→13:34)
[2019-11-13 12:00] VITALS: BP 152/102
[2019-11-13] MEDS: HYDROCODONE/ACETAMINOPHEN 5/325MG TABLET PO PRN (14:36)
[2019-11-13] MEDS: DILTIAZEM HCL 60MG TABLET PO SCH ×2 (14:36→23:25)
[2019-11-13] MEDS: ENOXAPARIN 40MG/0.4ML SYR SUBCUT SCH (14:37)
[2019-11-13] MEDS: LORAZEPAM 2MG/ML CPJ IV PRN (15:12)
[2019-11-13 20:00] VITALS: BP 176/123
[2019-11-14] MEDS: METHYLPREDNISOLONE SOD SUCC 125 MG/2 ML VIAL IV SCH ×3 (02:00→14:00)
[2019-11-14 08:00] VITALS: BP 128/77
[2019-11-14] MEDS: DILTIAZEM HCL 60MG TABLET PO SCH (08:39)
[2019-11-14] MEDS: LISINOPRIL 10MG TABLET PO SCH (08:39)
[2019-11-14] MEDS ORDERED: DILTIAZEM HCL 30MG TABLET PO NR (09:00)
[2019-11-14] MEDS: IPRATROPIUM BROMIDE (0.02%) 0.5MG/2.5ML NEB HHN SCH (09:28)
[2019-11-14] MEDS ORDERED: APIXABAN 5 MG TABLET PO SCH (10:30)
[2019-11-14 11:11] VITALS: BP 133/81
[2019-11-14 12:00] VITALS: BP 133/81
[2019-11-14] MEDS ORDERED: DILTIAZEM HCL 90MG TABLET PO SCH (21:00)
== END 2019-11-14 15:45 | disposition home health service (06) | DRG 180 ==
LOC: ER 09:30 → 8WST 11:54 → ENRESERV 15:38
PROVIDERS: ADMIT Hospitalist; ATTEND Hospitalist
PROC: 0W993ZZ Drainage of Right Pleural Cavity, Percutaneous Approach (ICD-10-PCS; principal; 2019-11-13)
DX: C78.01 Secondary malignant neoplasm of right lung (principal); J96.20 Acute and chronic respiratory failure, unspecified whether with hypoxia or hypercapnia; I50.33 Acute on chronic diastolic (congestive) heart failure; J91.0 Malignant pleural effusion; J93.9 Pneumothorax, unspecified; I47.1 Supraventricular tachycardia; C79.51 Secondary malignant neoplasm of bone; D68.59 Other primary thrombophilia; J44.9 Chronic obstructive pulmonary disease, unspecified; C61 Malignant neoplasm of prostate; F17.210 Nicotine dependence, cigarettes, uncomplicated; F14.90 Cocaine use, unspecified, uncomplicated; R74.0 Nonspecific elevation of levels of transaminase and lactic acid dehydrogenase [LDH]; Z20.828 Contact with and (suspected) exposure to other viral communicable diseases; Z85.46 Personal history of malignant neoplasm of prostate; Z79.899 Other long term (current) drug therapy; Z86.711 Personal history of pulmonary embolism; Z92.3 Personal history of irradiation; Z99.81 Dependence on supplemental oxygen; I11.0 Hypertensive heart disease with heart failure
CPT/HCPCS: 32555; 36415; 71045; 80053; 80305; 81003; 84443; 84484; 85025; 88305; 88312; 93005; 93306; 94640; 94644; 99285; J1650; J2060; J2930; J3490

== ENCOUNTER 2019-11-25 17:16 | Inpatient (IN) | payer MEDICARE, MEDICAID ==
[~2019-11-25] VITALS: Ht 170.2 cm; Wt 54.9 kg
[2019-11-25] MEDS ORDERED: ONDANSETRON HCL 4MG/2ML INJ IV PRN (18:30)
[2019-11-25] MEDS ORDERED: ACETAMINOPHEN 325MG TABLET PO PRN (18:30)
[2019-11-25] MEDS ORDERED: HYDROCODONE/ACETAMINOPHEN 5/325MG TABLET PO PRN (18:30)
[2019-11-25] MEDS ORDERED: LORAZEPAM 2MG/ML CPJ IV PRN (18:30)
[2019-11-25] MEDS ORDERED: MORPHINE SULFATE 2 MG/ML CPJ (NOT FOR IM USE) IV PRN (18:30)
[2019-11-25 19:55] LABS: HEMATOCRIT. 35.5 % (42.0-52.0); HEMOGLOBIN. 11.6 g/dL (14.0-18.0); MEAN CORPUSCULAR HEMOGLOBIN 27.7 pg (28.0-32.0); MEAN CORPUSCULAR VOLUME 85.2 fL (80.0-94.0); MEAN PLATELET VOLUME 7.3 fl (7.4-10.4); PLATELET 204 x1000/uL (130-400); RED BLOOD CELL COUNT 4.17 mill/uL (4.7-6.1); RED CELL DISTRIBUTION WIDTH 16.6 % (11.6-14.6)
[2019-11-25 20:00] VITALS: BP 93/57
[2019-11-25 20:01] LABS: CHLORIDE 107 mEq/L (98-107)
[2019-11-25] MEDS: HYDROCODONE/ACETAMINOPHEN 5/325MG TABLET PO PRN (20:18)
[2019-11-25 20:39] LABS: PLATELET ESTIMATE NORMAL
[2019-11-25 20:49] VITALS: BP 93/51
[2019-11-25] MEDS: TRAZODONE HCL 50MG TABLET PO PRN (22:23)
[2019-11-25] MEDS: IPRATROPIUM/ALBUTEROL 0.5-3(2.5)MG/3ML NEB HHN PRN (22:32)
[2019-11-25 23:04] LABS: *AMPHETAMINES SCREEN URINE NEGATIVE (NEGATIVE); *BARBITURATES SCREEN URINE NEGATIVE (NEGATIVE); *BENZODIAZEPINES SCREEN URINE NEGATIVE (NEGATIVE)
[2019-11-25 23:05] LABS: CANNABINOID URINE SCREEN NEGATIVE (NEGATIVE); METHADONE URINE SCREEN NEGATIVE (NEGATIVE); OPIATES URINE SCREEN PRESUMTIVE POSITIVE (NEGATIVE); PHENCYCLIDINE URINE SCREEN NEGATIVE (NEGATIVE)
[2019-11-25 23:20] LABS: *COCAINE SCREEN URINE NEGATIVE (NEGATIVE)
[2019-11-25] MEDS: SODIUM CHLORIDE 0.9% 1,000 ML IV SCH (23:49)
[2019-11-26] VITALS: BP 108/74
[2019-11-26] MEDS: IPRATROPIUM/ALBUTEROL 0.5-3(2.5)MG/3ML NEB HHN SCH ×3 (01:26→21:55)
[2019-11-26] MEDS: HYDROCODONE/ACETAMINOPHEN 5/325MG TABLET PO PRN ×2 (03:23→20:33)
[2019-11-26 04:00] VITALS: BP 122/63
[2019-11-26 08:00] VITALS: BP 86/59
[2019-11-26 09:34] LABS: CHLORIDE 107 mEq/L (98-107)
[2019-11-26 09:36] LABS: BASOPHILS % 0.5 % (0.0-2.0); EOSINOPHILS % 0.1 % (0.0-5.0); HEMATOCRIT. 35.9 % (42.0-52.0); HEMOGLOBIN. 11.4 g/dL (14.0-18.0); MEAN CORPUSCULAR HEMOGLOBIN 27.3 pg (28.0-32.0); MEAN CORPUSCULAR VOLUME 85.9 fL (80.0-94.0); MEAN PLATELET VOLUME 8.7 fl (7.4-10.4); MONOCYTES % 5.9 % (2.0-8.0); NEUTROPHILS % 83.5 % (40.0-76.0); PLATELET 187 x1000/uL (130-400); RED BLOOD CELL COUNT 4.19 mill/uL (4.7-6.1)
[2019-11-26] MEDS: IPRATROPIUM/ALBUTEROL 0.5-3(2.5)MG/3ML NEB HHN PRN (10:20)
[2019-11-26 12:00] VITALS: BP 91/67
[2019-11-26] MEDS: SODIUM CHLORIDE 0.9% 1,000 ML IV SCH (12:15)
[2019-11-26 16:00] VITALS: BP 97/59
[2019-11-26 20:00] VITALS: BP 107/68
[2019-11-26 21:39] LABS: INR 1.1; PARTIAL THROMBOPLASTIN TIME 23.9 sec (23.4-31.0); PROTHROMBIN TIME 11.1 sec (9.6-11.0)
[2019-11-27] VITALS: BP 101/70
[2019-11-27] MEDS: TRAZODONE HCL 50MG TABLET PO PRN (00:28)
[2019-11-27] MEDS: SODIUM CHLORIDE 0.9% 1,000 ML IV SCH (00:36)
[2019-11-27] MEDS: IPRATROPIUM/ALBUTEROL 0.5-3(2.5)MG/3ML NEB HHN SCH ×2 (00:39→08:29)
[2019-11-27] MEDS: HYDROCODONE/ACETAMINOPHEN 5/325MG TABLET PO PRN (03:13)
[2019-11-27 08:00] VITALS: BP 95/60
[2019-11-27] MEDS ORDERED: SODIUM BICARBONATE 4% (2.4MEQ) 5ML VIAL IV ONE (10:24)
[2019-11-27 12:00] VITALS: BP 106/73
[2019-11-27 12:36] VITALS: BP 122/76
[2019-11-27 12:40] LABS: BASOPHILS % 0.4 % (0.0-2.0); EOSINOPHILS % 0.3 % (0.0-5.0); HEMATOCRIT. 36.7 % (42.0-52.0); HEMOGLOBIN. 11.9 g/dL (14.0-18.0); LYMPHOCYTES % 7.4 % (20.0-50.0); MEAN CORPUSCULAR HEMOGLOBIN 27.5 pg (28.0-32.0); MEAN CORPUSCULAR VOLUME 84.8 fL (80.0-94.0); MEAN PLATELET VOLUME 7.7 fl (7.4-10.4); MONOCYTES % 6.8 % (2.0-8.0); NEUTROPHILS % 85.1 % (40.0-76.0); PLATELET 246 x1000/uL (130-400); RED BLOOD CELL COUNT 4.33 mill/uL (4.7-6.1); RED CELL DISTRIBUTION WIDTH 16.7 % (11.6-14.6)
[2019-11-27 12:46] LABS: CHLORIDE 107 mEq/L (98-107)
[2019-11-27 16:00] VITALS: BP 121/76
== END 2019-11-27 17:35 | disposition home health service (06) | DRG 180 ==
LOC: 5WST 17:16
PROVIDERS: ADMIT Internal Medicine Critical Care Medicine; ATTEND Internal Medicine
PROC: 0W993ZX Drainage of Right Pleural Cavity, Percutaneous Approach, Diagnostic (ICD-10-PCS; principal; 2019-11-27)
DX: J91.0 Malignant pleural effusion (principal); J96.21 Acute and chronic respiratory failure with hypoxia; C34.90 Malignant neoplasm of unspecified part of unspecified bronchus or lung; I47.2 Ventricular tachycardia; D68.59 Other primary thrombophilia; I31.3 Pericardial effusion (noninflammatory); C79.51 Secondary malignant neoplasm of bone; E88.09 Other disorders of plasma-protein metabolism, not elsewhere classified; F17.210 Nicotine dependence, cigarettes, uncomplicated; I10 Essential (primary) hypertension; I25.10 Atherosclerotic heart disease of native coronary artery without angina pectoris; J44.9 Chronic obstructive pulmonary disease, unspecified; I27.20 Pulmonary hypertension, unspecified; I95.9 Hypotension, unspecified; F14.10 Cocaine abuse, uncomplicated; Z20.828 Contact with and (suspected) exposure to other viral communicable diseases; Z51.5 Encounter for palliative care; Z86.711 Personal history of pulmonary embolism; Z85.46 Personal history of malignant neoplasm of prostate; Z85.118 Personal history of other malignant neoplasm of bronchus and lung; Z79.899 Other long term (current) drug therapy; Z92.3 Personal history of irradiation; Z99.81 Dependence on supplemental oxygen; Z79.01 Long term (current) use of anticoagulants; Z79.51 Long term (current) use of inhaled steroids; Z71.6 Tobacco abuse counseling
CPT/HCPCS: 32555; 36415; 71045; 80048; 80053; 80305; 83735; 84484; 85025; 87635; 93005; 93970; 94640; J2405; J3490; J7030